=== PATIENT | male | born 1980 | race Caucasian/White ===

== ENCOUNTER 2022-12-03 00:02 | Emergency (ER) | payer MEDICAID, MEDICARE ==
[~2022-12-03] VITALS: Ht 167.6 cm; Wt 120.3 kg
[2022-12-03 00:04] VITALS: BP 130/81
[2022-12-03] MEDS ORDERED: diazePAM 10MG/2ML SYRINGE IM ONE (00:35)
[2022-12-03] MEDS ORDERED: methylPREDNISolone 125MG 2ML VIAL IM ONE (00:35)
[2022-12-03] MEDS ORDERED: MEDR4PAK PO (02:57)
[2022-12-03] MEDS ORDERED: VALI5TAB PO (02:57)
== END 2022-12-03 03:28 | disposition home or self-care (01) ==
LOC: M ED 00:02
DX: M62.830 Muscle spasm of back (principal)
CPT/HCPCS: 72110; 96372; 99282; J2930; J3360